=== PATIENT | female | born 1980 | race Two or more races ===

== ENCOUNTER 2019-03-30 23:17 | Emergency (ER) | payer OTHER ==
[~2019-03-30] VITALS: Ht 154.9 cm; Wt 61.4 kg
[2019-03-30 23:23] VITALS: BP 129/87
[2019-03-30 23:57] LABS: BASOPHILS # (AUTO) 0.02 x10^3/uL (0-0.1); BASOPHILS % (AUTO) 0 % (0-1); EOSINOPHILS # (AUTO) 0.06 x10^3/uL (0-0.4); EOSINOPHILS % (AUTO) 1 % (1-7); LYMPHOCYTES # (AUTO) 1.13 x10^3/uL (1-3.4); LYMPHOCYTES % (AUTO) 25 % (22-44); MD NO; MEAN CORPUSCULAR HEMOGLOBIN 30.8 pg (27.0-34.8); MEAN CORPUSCULAR HGB CONC 33.1 g/dL (32.4-35.8); MEAN CORPUSCULAR VOLUME 92.8 fL (80-100); MEAN PLATELET VOLUME 8.5 fL (7.4-10.4); MONOCYTES # (AUTO) 0.49 x10^3/uL (0.2-0.8); MONOCYTES % (AUTO) 11 % (2-9); NEUTROPHILS # (AUTO) 2.83 x10^3/uL (1.8-6.8); NEUTROPHILS % (AUTO) 63 % (42-75); PLATELET COUNT 247 x10^3/uL (130-400); RED BLOOD COUNT 4.01 x10^6/uL (3.82-5.3)
[2019-03-31] MEDS ORDERED: ONDANSETRON 2MG/ML, 2ML IVPush ONE
[2019-03-31] MEDS ORDERED: SODIUM CHLORIDE FLUSH 10ML SYR IVF ONE
[2019-03-31] MEDS ORDERED: ONDANSETRON 2MG/ML, 2ML ONE (00:05)
[2019-03-31 00:07] LABS: ALANINE AMINOTRANSFERASE 79 U/L (12-78); ALBUMIN 3.5 g/dL (3.4-5.0); ANION GAP 9 mmol/L (5-15); CALCIUM 8.7 mg/dL (8.5-10.1); CHLORIDE 109 mmol/L (98-107); CREATININE 0.92 mg/dL (0.55-1.02)
[2019-03-31 00:10] LABS: ALKALINE PHOSPHATASE 78 U/L (45-117); BILIRUBIN,TOTAL 0.2 mg/dL (0.2-1.0); TOTAL PROTEIN 7.4 g/dL (6.4-8.2)
[2019-03-31] MEDS ORDERED: morphine SULFATE 10 MG/ML, 1ML IVPush ONE (01:00)
[2019-03-31 01:17] LABS: HCG UR SG 1.023 (1.003-1.030); MICROSCOPIC AUTO
[2019-03-31 01:18] LABS: CULTURE INDICATED? YES
[2019-03-31] MEDS ORDERED: metroNIDAZOLE 500 MG TABLET ONE (01:54)
[2019-03-31] MEDS ORDERED: metroNIDAZOLE 500 MG TABLET PO ONE (02:00)
== END 2019-03-31 02:02 | disposition home or self-care (01) ==
LOC: ED 03-31 02:00
DX: K52.9 Noninfective gastroenteritis and colitis, unspecified (principal)
CPT/HCPCS: 36415; 80053; 81001; 81025; 83690; 85025; 87086; 96374; 99283; J2405